=== PATIENT | female | born 2000 | race Two or more races ===

== ENCOUNTER 2019-11-20 17:29 | Emergency (ER) | payer OTHER, SELFPAY ==
[2019-11-20 17:30] VITALS: BP 112/71; PULSE 105; RESP 15; TEMP 36.7; O2SAT 99; BMI 29.9
--- NOTE | 2019-11-20 17:44 | ED.VISSUMM ---
- ER Visit Summary Date of Service: 11/20/19 Chief Complaint: [Back pain] History of Present Illness: The patient is a 19 F [presents the emergency department complaint of back pain for last 2 days. Patient states that she noticed it after working out doing cardio and jumping jacks. She tells me she had a similar episode about a month ago after doing squats. Pain is lower back. Patient complains of pain with movement and sitting on the toilet. She denies any pain rating down the legs. She denies any paresthesias. She denies change in bowel or bladder function. Patient's had no direct trauma. She denies night sweats.] States that she has been taken ibuprofen but only 200 mg twice a day. She has not been getting a lot of pain relief with that. Physical Examination: [ESTEBAN-ELIZABETHRANALY, EOMI. Cranial nerves II through XII grossly intact. TMs clear. Mucous membranes moist. No adenopathy. Cardiovascular-regular rate and rhythm without murmur or ectopy Lungs-clear to auscultation, chest wall stable without crepitus or subcu emphysema Abdomen-normoactive bowel sounds, soft, nontender, no rebound or rigidity, no peritoneal signs. Back exam-patient has no tenderness on exam over the thoracic or lumbar spine. She has no tenderness over the paraspinal musculature. Deep tendon reflexes are plus 2 out of 4 bilaterally at the patella and Achilles. Patient has normal 5 extension. Normal sensation. Extremities-intact ?4, normal range of motion, normal pulses, atraumatic] Test Results: [None indicated as patient has had no trauma. No signs of cauda equina on exam.] Emergency Department Course and Treatment: [] Treatment Plan: [Patient will be given a prescription for Flexeril and Naprosyn.] Disposition: [Discharged home in stable condition] Impression: Atraumatic back pain] This note was generated with [employer] dictation software. It may contain incorrect words, spelling, and punctuation that were not noted in review of the chart prior to signing ED Disposition - Plan for ED Patient: Referrals: NOT,DEFINED [Primary Care Provider] -
--- NOTE | 2019-11-20 17:47 | ED.DEP ---
ED Disposition - Plan for ED Patient: Instructions: ED Spasm Back No Trauma Prescriptions: cycloBENZAPRine HCl [Flexeril] 10 mg PO TID PRN #20 tab PRN Reason: Muscle Spasm Prescription Printed Naproxen [Naprosyn] 500 mg PO BID PRN #20 tab Prescription Printed Referrals: NOT,DEFINED [Primary Care Provider] - Martha Landeros MD [STAFF PHYSICIAN] - 5-7 Days
[2019-11-20 18:21] VITALS: RESP 16
--- NOTE | 2019-11-20 18:21 | ED.RN ---
REVIEWED D/C INSTRUCTIONS, FOLLOW UP CARE, PRESCRIPTIONS, AND S/S THAT WOULD WARRANT A RETURN TO THE ED WITH PT. PT VERBALIZED AN UNDERSTANDING AND DENIES FURTHER QUESTIONS FOR THIS RN. PT SKIN WARM/DRY, RESP EVEN AND UNLABORED, PT A&O X 3, NO DISTRESS NOTED. PT AMBULATED OUT OF ED, GAIT STEADY.
== END 2019-11-20 18:22 | disposition home or self-care (01) ==
LOC: ED 18:13
PROVIDERS: Emergency Provider Emergency Medicine
DX: M54.5 Low back pain (principal)
CPT/HCPCS: 99282